=== PATIENT | female | born 1985 | race Caucasian/White ===

== ENCOUNTER 2018-08-26 23:24 | Emergency (ER) | payer MEDICAID ==
[~2018-08-26] VITALS: Ht 149.9 cm; Wt 62.0 kg
[~2018-08-26 23:24] MED LIST: CIPR-259 PO; CYCL-1 PO; GUAI120015 PO; IBUP-1985 PO; PSEU-259 PO
[2018-08-26 23:27] VITALS: BP 135/96
[2018-08-26] MEDS ORDERED: CLIN150C2 PO (23:48)
[2018-08-26] MEDS ORDERED: HYDR-3965 PO (23:48)
[2018-08-26] MEDS ORDERED: ONDA4TAB6 PO (23:48)
[2018-08-26] MEDS ORDERED: PRED20TA PO (23:53)
== END 2018-08-27 00:04 | disposition home or self-care (01) ==
LOC: ER 23:25
DX: S02.5XXA Fracture of tooth (traumatic), initial encounter for closed fracture (principal); K02.9 Dental caries, unspecified; J02.9 Acute pharyngitis, unspecified; J45.909 Unspecified asthma, uncomplicated; F12.90 Cannabis use, unspecified, uncomplicated; F11.90 Opioid use, unspecified, uncomplicated; F15.90 Other stimulant use, unspecified, uncomplicated; Z86.69 Personal history of other diseases of the nervous system and sense organs; Z86.14 Personal history of Methicillin resistant Staphylococcus aureus infection; Z60.2 Problems related to living alone; Z59.0 Homelessness; Z56.0 Unemployment, unspecified; X58.XXXA Exposure to other specified factors, initial encounter; Y93.89 Activity, other specified; Y92.89 Other specified places as the place of occurrence of the external cause; Y99.8 Other external cause status
CPT/HCPCS: 99283

== ENCOUNTER 2018-10-27 15:31 | Inpatient (IN) | payer MEDICAID | END 2018-10-30 17:20 | disposition home or self-care (01) | LOC: ER 15:31 → ORTHO 4S 10-28 14:15 → ED HOLD 17:51 | DX: A41.9 Sepsis, unspecified organism (principal); N17.9 Acute kidney failure, unspecified; N10 Acute pyelonephritis ==

== ENCOUNTER 2023-11-09 16:32 | Emergency (ER) | payer MEDICAID ==
[~2023-11-09] VITALS: Ht 149.9 cm; Wt 52.9 kg
[~2023-11-09 16:32] MED LIST changes: -CIPR-259 PO; -CYCL-1 PO; -GUAI120015 PO; -IBUP-1985 PO; +POTA-206 PO; -PSEU-259 PO
[2023-11-09 16:37] VITALS: BP 126/84; PULSE 114; RESP 16; TEMP 98; O2SAT 99
== END 2023-11-09 19:46 | disposition left against medical advice (07) ==
LOC: ER 16:33
DX: R10.9 Unspecified abdominal pain (principal); R11.2 Nausea with vomiting, unspecified; Z53.21 Procedure and treatment not carried out due to patient leaving prior to being seen by health care provider
CPT/HCPCS: 99281

== ENCOUNTER 2024-02-20 15:33 | Emergency (ER) | payer MEDICAID ==
[~2024-02-20] VITALS: Ht 152.4 cm; Wt 54.5 kg
[2024-02-20 15:44] VITALS: BP 128/88; PULSE 100; RESP 18; TEMP 98.2; O2SAT 99
[2024-02-20 17:26] LABS: BASOPHILS % (AUTO) 0.2 % (0-1); EOSINOPHILS # (AUTO) 0.1 X10'3 (0-0.9); EOSINOPHILS % (AUTO) 1.3 % (0-6); HEMATOCRIT 40.6 % (35.0-45.0); HEMOGLOBIN 13.4 g/dl (12.0-16.0); LYMPHOCYTES # (AUTO) 2.7 X10'3 (1.1-4.8); LYMPHOCYTES % (AUTO) 33.2 % (21-51); MEAN CORPUSCULAR HEMOGLOBIN 28.1 PG (27.0-31.0); MEAN CORPUSCULAR HGB CONC 33.1 g/dL (33.0-36.5); MEAN CORPUSCULAR VOLUME 84.9 FL (78-98); MEAN PLATELET VOLUME 8.4 FL (7.4-10.4); MONOCYTES # (AUTO) 0.7 X10'3 (0-0.9); MONOCYTES % (AUTO) 8.9 % (2-12); NEUTROPHILS # (AUTO) 4.6 X10'3 (1.8-7.7); NEUTROPHILS % (AUTO) 56.4 % (42-75); PLATELET COUNT 242 X10'3 (140-440); RED BLOOD COUNT 4.78 X10'6 (4.20-5.60); WHITE BLOOD COUNT 8.2 X10'3 (4.5-11.0)
[2024-02-20 17:33] LABS: ALBUMIN 3.4 G/DL (3.4-5.0); ANION GAP 7 (8-16); BLOOD UREA NITROGEN 10 MG/DL (7-18); BUN/CREATININE RATIO 15.6 (10.0-20.0); CALCIUM 8.9 MG/DL (8.5-10.1); CHLORIDE 100 MMOL/L (99-107); CREATININE 0.64 MG/DL (0.40-0.90); GLUCOSE 85 MG/DL (70-104); POTASSIUM 3.6 MMOL/L (3.5-5.1); SODIUM 136 MMOL/L (135-145); TOTAL CARBON DIOXIDE 29.5 MMOL/L (24-32); eCRCL 86 ML/MIN; eGFR > 90 ML/MIN
== END 2024-02-20 18:02 | disposition left against medical advice (07) ==
LOC: ER 15:33
DX: R51.9 Headache, unspecified (principal); R22.0 Localized swelling, mass and lump, head; Z53.21 Procedure and treatment not carried out due to patient leaving prior to being seen by health care provider; Z88.0 Allergy status to penicillin; Z88.8 Allergy status to other drugs, medicaments and biological substances
CPT/HCPCS: 36415; 80048; 83605; 83735; 84145; 85025; 87040